=== PATIENT | female | born 1960 | race Caucasian/White ===

== ENCOUNTER → 2024-01-24 10:41 | Outpatient (REF) | payer OTHER, SELFPAY | LOC: HWRAD 10:41 | PROVIDERS: ATTENDING PHYSICIAN Obstetrics & Gynecology Gynecology; FAMILY PHYSICIAN Family Medicine | DX: R10.2 Pelvic and perineal pain (principal); Z12.31 Encounter for screening mammogram for malignant neoplasm of breast | CPT/HCPCS: 76830; 76856; 77063; 77067 ==

== ENCOUNTER → 2024-05-09 08:31 | Outpatient (REF) | payer OTHER, SELFPAY | LOC: HWRAD 08:31 | PROVIDERS: ATTENDING PHYSICIAN Family Medicine | DX: R39.89 Other symptoms and signs involving the genitourinary system (principal) | CPT/HCPCS: 74177; Q9967 ==

== ENCOUNTER → 2024-07-14 12:49 | Outpatient (REF) | payer OTHER, SELFPAY | LOC: HWRAD 12:49 | PROVIDERS: ATTENDING PHYSICIAN Obstetrics & Gynecology Gynecology; FAMILY PHYSICIAN Family Medicine | DX: R10.2 Pelvic and perineal pain (principal) | CPT/HCPCS: 76830; 76856 ==

== ENCOUNTER 2024-11-02 22:26 | Emergency (ER) | payer OTHER, SELFPAY ==
[2024-11-02 22:27] VITALS: BP 151/100
[2024-11-02 23:00] LABS: % Basophils 0.9 % (0-2); % Eosinophils 1.6 % (0-6); % Immature Granulocytes 0.1 % (0-0.5); % Lymphocytes 32.9 % (20.5-51.1); % Monocytes 8.6 % (1.7-9.3); % Neutrophils 55.9 % (42.2-75.2); Absolute Basophils 0.1 10^3/uL (0-0.2); Absolute Eosinophils 0.1 10^3/uL (0-0.7); Absolute Lymphocytes 2.3 10^3/uL (1.2-3.4); Absolute Monocytes 0.6 10^3/uL (0.1-0.6); Absolute Neutrophils 3.9 10^3/uL (1.4-6.5); Hematocrit 41.3 % (37.0-47.0); Hemoglobin 13.8 g/dL (12.0-16.0); Mean Corp Hgb Conc. 33.4 g/dL (33.0-37.0); Mean Corpuscular Hgb 29.7 pg (27.0-31.0); Mean Platelet Volume 9.4 fL (7.4-10.4); Nucleated Red Blood Cells % 0 %; Platelet Count 280 10^3/uL (130-400); Red Blood Cell Count 4.64 10^6/uL (4.20-5.40)
[2024-11-02 23:14] LABS: ALT (SGPT) 20 U/L (0-35); AST (SGOT) 24 U/L (14-36); Albumin 4.4 g/dl (3.5-5.0); Alkaline Phosphatase 75 U/L (38-126); Blood Urea Nitrogen 17 mg/dl (7-17); Calcium 9.6 mg/dl (8.4-10.2); Carbon Dioxide 28 mmol/L (22-30); Chloride 103 mmol/L (98-107); Glucose 107 mg/dl (70-99); Potassium 4.3 mmol/L (3.5-5.1); Sodium 140 mmol/L (135-145); Total Bilirubin 0.4 mg/dl (0.2-1.3); Total Protein 6.9 g/dl (6.3-8.2); eGFR > 60.00
[2024-11-02 23:25] LABS: Troponin I < 0.012 ng/ml
[2024-11-02 23:45] VITALS: BP 161/92
[2024-11-02 23:47] VITALS: BMI 25.4
--- NOTE | 2024-11-02 23:52 | ED.GENMED ---
History of Present Illness
General
Chief Complaint: Blood Pressure Problem
Source: patient
Exam Limitations: none
Time Seen by Provider: 11/02/24 23:37
History of Present Illness
History of Present Illness:
This is a 64 year old female that comes in with c/o hypertension and chest pain. State that her mom has a machine and she checks her BP every one and while. States that she noticed that it had been running high so she checked it tonight. States that
it was 167/96. State that she was watching TV when she got this pinching in her chest that last less then a minute. States that she checked her BP again before going to bed and it was 180/104. State that she has a headache. Denies any fever,
chills, chest pain, SOB, abd pain, nausea, vomiting, diarrhea, dizziness, urinary burning.
Past History
Past History
ED Past Medical History: Other (Diverticulitis)
ED Past Surgical History: Gynecological (left ovary removed, ), Orthopedic (left arm orthopedic surgery) and Other (Bilateral inguinal hernia repair)
Social History
Tobacco: Former smoker
Alcohol: None
Drug: None
Personal:
Living: with family
Employment: Not employed
Family History
Family History: Other
Review of Systems
Review of Systems
All Other Systems: ROS reviewed and negative except as documented in HPI and ROS
Constitutional: Reports no symptoms; Denies fever or chills
EENT: Reports no symptoms
Respiratory: Reports no symptoms; Denies cough or trouble breathing
Cardiac: Reports chest pain
ABD/GI: Reports no symptoms; Denies abdominal pain, nausea, vomiting or diarrhea
: Reports no symptoms; Denies dysuria, frequency or urgency
Musculoskeletal: Reports no symptoms
Skin: Reports no symptoms
Neurological: Reports headache; Denies dizzy
Psychiatric: Reports no symptoms
Phy Exam
General Physical Exam
General Presentation: well appearing and no apparent distress
General age: appears stated age
General Skin: warm and dry
General Habitus: normal
General Mental: alert
General Hydration: appears well hydrated
ENT Exam
ENT Exam: TM's normal, pharynx normal and neck supple
Eye Exam
Eye Exam: EOMI
Cardiovascular Exam
Cardiovascular Exam: regular rate/rhythm, no edema, no murmur and normal peripheral pulses
Pulmonary Exam
Pulmonary Exam: lungs clear, no respiratory distress, no rales, chest non tender, no crackles, no rhonchi, no wheezing and no cough
Gastrointestinal Exam
Gastrointestinal Exam: normal bowel sounds, non tender, soft, no organomegaly, no pulsatile mass and non distended
Musculoskeletal Exam
Musculoskeletal Exam: full ROM and no edema
Skin Exam
Skin Exam: normal color, warm/dry, no rash and no petechia
Psychiatric Exam
Psychiatric Exam: normal mood/affect
Course
Orders/Labs/Results
Orders:
Orders
11/02/24 22:31
Electrocardiogram (*1) Urgent
Reason for Study: Chest Pain
EKG- Treatment ONCE
11/02/24 22:47
Complete Blood Count/With Diff Urgent
Comprehensive Metabolic Panel Urgent
Troponin I Urgent
11/02/24 23:51
Electrocardiogram (*1) Urgent
Reason for Study: Chest Pain
Other Reason for Exam: rEPEAT WITH tROPONIN
EKG- Treatment ONCE
11/02/24 23:55
Acetaminophen [Tylenol] 1,000 mg PO NOW STA
11/03/24 00:01
CR Chest - 2 Views Urgent
Reason For Exam: cHEST PAIN
11/03/24 01:40
Troponin I Urgent
Abnormal Lab Results
11/02/24
22:47
Glucose 107 H mg/dl
(70-99)
11/02/24 22:47
11/02/24 22:47
glucose nonfasting. Troponin <0.012
Second Troponin <0.012
Vital Signs
Initial and Last Documented VS:
Initial Vital Signs
Temp Pulse Resp BP Pulse Ox
98.7 F 83 16 151/100 99
11/02/24 22:27 11/02/24 22:27 11/02/24 22:27 11/02/24 22:27 11/02/24 22:27
Last Documented Vital Signs
Temp Pulse Resp BP Pulse Ox
98.7 F 64 17 138/83 96
11/02/24 22:27 11/03/24 01:00 11/03/24 01:00 11/03/24 01:00 11/03/24 00:30
MDM/Problems Addressed
Differential Diagnosis Includes:
Hypertension, Coronary syndrome
MDM/Problems Addressed:
This is a 64 year old female that comes in with c/o hypertension and a pinching in her chest that last less then 1 minute.
Will check labs, Chest x-ray and ECG. BP at this time is 161/92. Will watch and explained at this time this would not be treated.
Repeat ECG: Rate 65, normal axis. Normal QRS, Negative for ischemia.
Back into see patient. Explained that her Blood work is normal along with the chest x-ray and ECG. BP has come down on its own. Patient to follow up with the family doctor. Return with any concerns.
Chronic conditions affecting care:
NA
Acute Exacerbation and/or Progression of Chronic Illness:
NA
*Radiology
Radiology exam reviewed: preliminary read by ED provider (Chest- negative for cardiopulmonary process)
*Pulse Oximetry
Patient hypoxic: no
*EKG
Interpreted by ED Provider?: Yes
Heart Rate: 69
Rate: normal
Rhythm: sinus
[place]: normal axis
Interval: normal interval
QRS Pattern: normal QRS
Ischemia: no ischemia
*Family Literacy Coordinator Interpretation
Rate: normal
Heart Rate: 68
Rhythm: sinus
*Critical Care Note
Total Time (30-74mins, 75-104mins- exclusive of procedures): Not Applicable
ED Attending Note
-
Portions of this chart may have been created with voice recognition software.� Occasional wrong word or��sound alike� substitutions may have occurred due to the inherent limitations of voice recognition software.
Discharge Plan
Departure
Patient Disposition: Home (Routine Discharge)
Date of Disposition: 11/03/24
Time of Disposition: 02:20
Patient with high blood pressure during this ER visit?: Yes
Condition: Good
Covid-19: Not Applicable
Discharge Problem:
Chest pain
Instructions: Chest Pain, Adult ED, Chest Pain PCP Follow Up, BLOOD PRESSURE
Prescriptions:
No Action
No Current Medications
0
Referrals:
Carter Burnette, DO [Family Provider] - Follow up in 2-3 days
Activity Restrictions/Additional Instructions:
As discussed, your blood work and ECG are normal. Your Chest x-ray is normal. Your BP has come down on its own. Please follow up with the family doctor in the next 2-3 days for recheck. When taking your blood pressure, please sit in the chair for 5
min with your feet flat on the floor and arm level with the heart before taking your blood pressure. IF YOU HAVE INCREASED OR CHANGING CHEST PAIN, OR YOU HAVE ANY OTHER CONCERNS PLEASE RETURN TO THE EMERGENCY ROOM
Interventions
Interventions:
*General Assessment Last Done: 11/02/24 22:27
*Neglect/Abuse Screening Last Done: 11/02/24 22:27
ED- Fall Risk Assessment Last Done: 11/03/24 01:11
*ED COVID-19 Vaccine History Last Done: 11/02/24 22:27
ED- Cardiac Assessment Last Done: 11/03/24 01:11
ED- Neurological Assessment Last Done: 11/03/24 01:11
ED- Pulmonary Assessment Last Done: 11/03/24 01:11
Discharge Date and Time
Print Language: [place] CITIZ[place]
[2024-11-03] VITALS: BP 139/81
[2024-11-03 01:00] VITALS: BP 138/83
[2024-11-03 02:00] VITALS: BP 145/80
[2024-11-03 02:17] LABS: Troponin I < 0.012 ng/ml
== END 2024-11-03 02:30 | disposition home or self-care (01) ==
LOC: EMR 22:26
PROVIDERS: Clinical Nurse Specialist Family Health; Emergency Medicine; EMERGENCY PHYSICIAN Emergency Medicine; FAMILY PHYSICIAN Family Medicine
DX: R07.89 Other chest pain (principal); R51.9 Headache, unspecified; I10 Essential (primary) hypertension; K57.92 Diverticulitis of intestine, part unspecified, without perforation or abscess without bleeding; Z87.891 Personal history of nicotine dependence
CPT/HCPCS: 99284; 71046; 80053; 84484; 85025; 93005

== ENCOUNTER → 2025-04-14 15:04 | Outpatient (REF) | payer OTHER, SELFPAY | LOC: HWWDC 15:04 | PROVIDERS: ATTENDING PHYSICIAN Obstetrics & Gynecology Gynecology | DX: Z12.31 Encounter for screening mammogram for malignant neoplasm of breast (principal) | CPT/HCPCS: 77063; 77067 ==